=== PATIENT | male | born 1985 | race African-American/Black ===

== ENCOUNTER 2017-02-06 15:08 | Emergency (ER) | payer SELFPAY ==
[~2017-02-06] VITALS: Ht 188 cm; Wt 93.4 kg
[~2017-02-06 15:08] MED LIST: LEVAQUIN500 MG PO; PREDNISONE20 MG PO; TESSALON PERLE100 MG PO
[2017-02-06] MEDS ORDERED: NARCAN4 MG NS (15:32)
[2017-02-06 17:33] VITALS: BP 124/77
== END 2017-02-06 17:48 | disposition home or self-care (01) ==
LOC: EME 15:08
DX: T40.1X1A Poisoning by heroin, accidental (unintentional), initial encounter (principal); F17.200 Nicotine dependence, unspecified, uncomplicated
CPT/HCPCS: 99281; 99284; J2310